=== PATIENT | male | born 1965 | race Caucasian/White ===

== ENCOUNTER 2023-06-20 09:04 | Outpatient (CLI) | payer OTHER, SELFPAY | END 2023-06-20 09:05 | disposition home or self-care (01) | PROVIDERS: PCP Family Medicine; Visit Provider Family Medicine | DX: Z13.220 Encounter for screening for lipoid disorders (principal); Z12.5 Encounter for screening for malignant neoplasm of prostate | CPT/HCPCS: 80061; 84153 ==

== ENCOUNTER 2023-06-26 08:32 | Outpatient (CLI) | payer OTHER, SELFPAY ==
--- NOTE | 2023-06-26 10:07 | W.ANESCHARGE ---
Anesthesia Charges Start Date/Time Anesthesia Start Date: 06/26/23 Anesthesia Start Time: 09:38 Stop Date/Time Anesthesia Stop Date: 06/26/23 Anesthesia Stop Time: 10:05
--- NOTE | 2023-06-26 14:53 | W.ANESCHARGE ---
Anesthesia Charges Start Date/Time Anesthesia Start Date: 06/26/23 Anesthesia Start Time: 09:38 Stop Date/Time Anesthesia Stop Date: 06/26/23 Anesthesia Stop Time: 10:05
== END 2023-06-26 08:33 | disposition home or self-care (01) ==
LOC: OP CLINIC 08:32
PROVIDERS: PCP Family Medicine; Visit Provider Surgery
DX: Z86.010 Personal history of colon polyps (principal); K63.5 Polyp of colon
CPT/HCPCS: 00811; 45385; 88305; J2704

== ENCOUNTER 2025-03-22 10:33 | Outpatient (CLI) | payer OTHER, SELFPAY | END 2025-03-22 10:34 | disposition home or self-care (01) | PROVIDERS: PCP Family Medicine; Visit Provider Family Medicine | DX: E78.5 Hyperlipidemia, unspecified (principal); Z12.5 Encounter for screening for malignant neoplasm of prostate; Z13.1 Encounter for screening for diabetes mellitus | CPT/HCPCS: 80048; 80061; G0103 ==